=== PATIENT | female | born 1960 ===

== ENCOUNTER 2016-12-15 13:32 | Emergency (ER) | payer BC ==
[2016-12-15 13:58] VITALS: BP 136/64
--- NOTE | 2016-12-15 14:26 | UC ---
Knee Pain HPI - HPI Summary HPI Summary: Patient presents to 4 hours after twisting the right knee with no known trauma. She has never injured the area before. She states she feels laxity in the knee when she bends the knee just right, but is otherwise able to ambulate OK with minimal amount of pain. Pain is 8/10 and intermittent. Denies other pain or injuries. - History of Current Complaint Chief Complaint: UCLowerExtremity Stated Complaint: RIGHT KNEE PAIN Time Seen by Provider: 12/15/16 13:43 Hx Obtained From: Patient ?: No Onset/Duration: Sudden Onset Severity Initially: Moderate Severity Currently: Moderate Pain Intensity: 8 Pain Scale Used: 0-10 Numeric Character: Aching Aggravating Factor(s): Movement, Weight Bearing Alleviating Factor(s): Rest Able to Bear Weight: Yes - Risk Factors Septic Arthritis Risk Factor: Negative Gout Risk Factor: Age ^ 38 - Allergies/Home Medications Allergies/Adverse Reactions: Allergies Allergy/AdvReac Type Severity Reaction Status Date / Time No Known Allergies Allergy Verified 12/15/16 13:51 Home Medications: Home Medications Losartan TAB* [Cozaar TAB*] 1 tab BEDTIME 12/15/16 [History Confirmed 12/15/16] Spironolactone TAB* [Aldactone TAB*] 25 mg PO BID 12/15/16 [History Confirmed ] Tamoxifen TAB* [Nolvadex*] 10 mg PO DAILY 12/15/16 [History Confirmed 12/15/16] PMH/Surg Hx/FS Hx/Imm Hx Previously Healthy: Yes - Surgical History Surgical History: Yes Surgery Procedure, Year, and Place: Breast cx; Parathyroid; - Family History Known Family History: Positive: Unknown - Social History Occupation: Employed Full-time Lives: With Family Alcohol Use: Occasionally Substance Use Type: None Smoking Status (MU): Never Smoked Tobacco Have You Smoked in the Last Year: No Review of Systems Constitutional: Negative Skin: Negative Respiratory: Negative Cardiovascular: Negative Motor: Decreased ROM - d/t pain Neurovascular: Negative Musculoskeletal: Arthralgia - right knee pain Neurological: Negative Psychological: Negative All Other Systems Reviewed And Are Negative: Yes Physical Exam Triage Information Reviewed: Yes Appearance: Well-Appearing, No Pain Distress, Well-Nourished Vital Signs: Initial Vital Signs Temp 99.5 F 12/15/16 13:53 Pulse 89 12/15/16 13:53 Resp 16 12/15/16 13:53 BP 136/64 12/15/16 13:53 Pulse Ox 98 12/15/16 13:53 Vital Signs Reviewed: Yes Eye Exam: Normal Eyes: Positive: Conjunctiva Clear Neck exam: Normal Neck: Positive: Supple, No Lymphadenopathy Respiratory Exam: Normal Respiratory: Positive: Chest non-tender, Lungs clear Cardiovascular Exam: Normal Cardiovascular: Positive: RRR Musculoskeletal: Positive: Strength Limited @ - right knee, ROM Limited @ - limited at right knee d/t injury/ anterior drawer negative Neurological Exam: Normal Neurological: Positive: Alert Skin Exam: Normal Knee Pain Course/Dx - Course Course Of Treatment: Right knee pain s/p twisting of the knee earlier this afternoon. Denies trauma. Has taken ibuprofen without relief of symptoms. Ambulating but with mild amount of pain and feeling "lax" in the joint upon certain movements. Treatment options explained. Patient is requesting pain managment for knee pain and will follow up with PCP. Ortho referral given. - Differential Dx/Diagnosis Differential Diagnosis/HQI/PQRI: Fracture (Closed), Fracture (Open), Sprain, Strain Provider Diagnoses: Right knee strain Discharge - Discharge Plan Condition: Stable Disposition: HOME Prescriptions: HYDROcodone/ACETAMIN 5-325 MG* [Starks 5-325 TAB*] 1 tab PO Q6H PRN #12 tab MDD 4 PRN Reason: Pain HYDROcodone/ACETAMIN 5-325 MG* [Starks 5-325 TAB*] 1 tab PO Q6H PRN #12 tab MDD 4 PRN Reason: Pain oxyCODONE/Acetamin 5/325 MG* [Percocet 5/325 TAB*] 1 tab PO Q6H PRN #12 tab MDD 4 PRN Reason: Pain Patient Education Materials: Knee Pain (ED) Referrals: Non Staff,Doctor [Primary Care Provider] - Additional Instructions: Follow up with PCP Johnny wrap the knee x 2 days Ibuprofen 600mg three times daily or 400mg four times daily Take oxycodone pain medication on opposite schedule of ibuprofen for breakthrough pain not well controlled with ibuprofen.
== END 2016-12-15 14:27 | disposition home or self-care (01) ==
LOC: UCCORT 13:32
DX: S83.91XA Sprain of unspecified site of right knee, initial encounter (principal); X50.9XXA Other and unspecified overexertion or strenuous movements or postures, initial encounter; Y92.9 Unspecified place or not applicable
CPT/HCPCS: 99202; G0463